=== PATIENT | male | born 2000 | race Caucasian/White ===

== ENCOUNTER 2022-01-19 09:00 | Emergency (ER) | payer OTHER ==
[~2022-01-19] VITALS: Ht 167.6 cm; Wt 81.6 kg
--- NOTE | 2022-01-19 09:20 | NUR ---
BIBA [id number] "Abdominal pain/nausea/vomiting started yesterday". On room air, breathing evenly and unlabored. Kept comfortable, will continue to monitor accordingly.
[2022-01-19] MEDS ORDERED: IV NS 0.9% 1,000 ML BAG IV ONE (09:30)
[2022-01-19] MEDS ORDERED: ONDANSETRON HCL/PF - ER 4 MG/2 ML VIAL IV ONE (09:30)
[2022-01-19] MEDS ORDERED: KETOROLAC TROMETHAMINE INJ 30 MG/ML VIAL IV ONE (09:30)
[2022-01-19] MEDS ORDERED: ONDANSETRON HCL/PF 4 MG/2 ML VIAL ONE (09:33)
[2022-01-19] MEDS ORDERED: KETOROLAC TROMETHAMINE 15 MG/ML VIAL ONE (09:33)
[2022-01-19 09:37] LABS: BASOPHILS # (AUTO) 0.2 K/uL (0.0-0.2); BASOPHILS % (AUTO) 0.8 % (0.0-2.0); EOSINOPHILS % (AUTO) 0.2 % (0.0-6.0); HEMATOCRIT 45 % (39-51); LYMPHOCYTES # (AUTO) 2.1 K/uL (0.8-4.8); MEAN CORPUSCULAR HGB CONC 34 g/dl (31.0-36.0); MEAN CORPUSCULAR VOLUME 87 fL (80-96); MONOCYTES # (AUTO) 0.9 K/uL (0.1-1.30); NEUTROPHILS # (AUTO) 15.7 K/uL (1.8-8.9); PLATELET COUNT (AUTO) 321 K/uL (150-450); RED BLOOD CELL COUNT(AUTO) 5.15 MIL/uL (4.5-6.0); WHITE BLOOD COUNT (AUTO) 18.9 K/uL (4.3-11.0)
--- NOTE | 2022-01-19 09:40 | NUR ---
wheeled patient via gurney accompanied by [employer] to ct.
[2022-01-19 09:59] LABS: ALANINE AMINOTRANSFERASE 36 U/L (12-78); ALBUMIN 4.7 g/dL (3.4-5.0); ALKALINE PHOSPHATASE 39 U/L (46-116); ASPARTATE AMINOTRANSFERASE 22 U/L (15-37); CALCIUM, SERUM 9.7 mg/dL (8.5-10.1); CARBON DIOXIDE 23 mmol/L (21-32); CHLORIDE 97 mmol/L (98-107); CREATININE 1.3 mg/dL (0.6-1.3); GLUCOSE 136 mg/dL (74-106); LIPASE 43 U/L (73-393); POTASSIUM 3.6 mmol/L (3.5-5.1); SODIUM SERUM 137 mmol/L (136-145); TOTAL PROTEIN, SERUM 8.3 g/dL (6.4-8.2); UREA NITROGEN, BLOOD 21 mg/dL (7-18)
[2022-01-19] MEDS ORDERED: MORPHINE SULFATE INJ 4 MG/ML DISP.SYRIN ONE ×2 (10:27→12:21)
[2022-01-19] MEDS ORDERED: IV NS 0.9% 1,000 ML IV ONE (10:30)
[2022-01-19] MEDS ORDERED: MORPHINE SULFATE INJ 2 MG/ML DISP.SYRIN IV ONE ×2 (10:30→12:30)
[2022-01-19 10:51] LABS: BILIRUBIN,DIRECT 0.1 mg/dL (0.0-0.2); BILIRUBIN,TOTAL 0.5 mg/dL (0.2-1.0)
[2022-01-19] MEDS ORDERED: IOHEXOL-350 100 ML VIAL IV ONE (11:19)
[2022-01-19] MEDS ORDERED: IV NS 0.9% 250 ML IV ONE (11:19)
[2022-01-19] MEDS ORDERED: CEFEPIME 1 GM in IV D5W 50 ML IV ONE (13:00)
[2022-01-19] MEDS ORDERED: VANCOMYCIN HCL 1 GM in IV D5W 260 ML IV ONE (13:00)
--- NOTE | 2022-01-19 14:21 | NUR ---
[facility] BED REQUESTED.
[2022-01-19 15:00] VITALS: BP 118/77
[2022-01-19] MEDS ORDERED: IV NS 0.9% 1,000 ML IV PRN (15:00)
[2022-01-19] MEDS ORDERED: ONDANSETRON HCL/PF 4 MG/2 ML VIAL IVP PRN (15:00)
[2022-01-19] MEDS ORDERED: MAG HYDROX/AL HYDROX/SIMETH 30 ML UDC PO PRN (15:00)
[2022-01-19] MEDS ORDERED: MORPHINE SULFATE INJ 2 MG/ML DISP.SYRIN IV PRN (15:00)
[2022-01-19] MEDS ORDERED: MAGNESIUM HYDROXIDE 30 ML UDC PO PRN (15:00)
[2022-01-19] MEDS ORDERED: Z GUARD REMEDY 4 OZ OINT TP PRN (15:00)
[2022-01-19] MEDS ORDERED: ZOLPIDEM TARTRATE 5 MG TABLET PO PRN (15:00)
[2022-01-19] MEDS ORDERED: ACETAMINOPHEN 325 MG TABLET PO PRN (15:00)
--- NOTE | 2022-01-19 15:59 | NUR ---
Patient does not wish to proceed with medical care recommended by Dr. Goins. Patient given information related to possible complications, up to and including , which could occur as a result of leaving the hospital at this time. Patient verbalizes understanding of risks involved due to leaving against medical advice. Patient has signed AMA form.
== END 2022-01-19 15:59 | disposition left against medical advice (07) ==
LOC: ER 09:05
DX: K52.9 Noninfective gastroenteritis and colitis, unspecified (principal); R10.13 Epigastric pain; Z20.822 Contact with and (suspected) exposure to COVID-19; Z53.29 Procedure and treatment not carried out because of patient's decision for other reasons; E87.2 Acidosis; K76.0 Fatty (change of) liver, not elsewhere classified; Z87.442 Personal history of urinary calculi
CPT/HCPCS: 36415; 74174; 74176; 80048; 80076; 83605 ×2; 83690; 85025; 87426; 96361; 96365; 96368; 96375; 96376; 99291; 99292; C9803; J0692; J1885; J2270 ×2; J2405 ×2; J7030 ×2; J7050; J7060; Q9967

== ENCOUNTER 2022-02-15 13:50 | Emergency (ER) | payer OTHER ==
[~2022-02-15] VITALS: Ht 170.2 cm; Wt 77.1 kg
--- NOTE | 2022-02-15 14:14 | NUR ---
BIBS C/O GENERALIZED PAIN AND VOMITTING THIS MORNING WAS HERE PREVIOUSLY AND DIAGNOSED WITH COLITIS, PAIN IS 10/10. AMBULATORY, PLACED ON BED, AAOX4, IN PAIN.
--- NOTE | 2022-02-15 14:15 | NUR ---
URINE COLLECTED AND SENT
[2022-02-15] MEDS ORDERED: ONDANSETRON HCL/PF 4 MG/2 ML VIAL IVP ONE (14:30)
[2022-02-15] MEDS ORDERED: IV NS 0.9% 1,000 ML BAG IV ONE (14:30)
[2022-02-15] MEDS ORDERED: ONDANSETRON HCL/PF 4 MG/2 ML VIAL ONE (14:38)
--- NOTE | 2022-02-15 14:40 | NUR ---
HYDRAULIC MINER BLASTING AT BED SIDE
[2022-02-15 14:52] LABS: BASOPHILS % (AUTO) 0.3 % (0.0-2.0); EOSINOPHILS % (AUTO) 0.5 % (0.0-6.0); HEMATOCRIT 47 % (39-51); HEMOGLOBIN 15.8 g/dL (13.5-17.5); LYMPHOCYTES # (AUTO) 1.8 K/uL (0.8-4.8); LYMPHOCYTES % (AUTO) 11.4 % (20.0-44.0); MEAN CORPUSCULAR HGB CONC 34 g/dl (31.0-36.0); MEAN CORPUSCULAR VOLUME 85 fL (80-96); MONOCYTES # (AUTO) 0.5 K/uL (0.1-1.30); MONOCYTES % (AUTO) 3.4 % (2.0-12.0); NEUTROPHILS # (AUTO) 13.5 K/uL (1.8-8.9); NEUTROPHILS % (AUTO) 84.4 % (43.0-81.0); PLATELET COUNT (AUTO) 317 K/uL (150-450); RED BLOOD CELL COUNT(AUTO) 5.51 MIL/uL (4.5-6.0)
[2022-02-15] MEDS ORDERED: DICYCLOMINE HCL INJ 20 MG/2 ML AMPUL IM ONE ×2 (14:57→15:00)
[2022-02-15] MEDS ORDERED: FAMOTIDINE/PF INJ 20 MG/2 ML VIAL IV ONE ×2 (14:58→15:00)
[2022-02-15] MEDS ORDERED: MAG HYDROX/AL HYDROX/SIMETH 30 ML UDC ONE (14:58)
[2022-02-15] MEDS ORDERED: LIDOCAINE VISCOUS 2% UD 15 ML UDC ONE (14:58)
[2022-02-15] MEDS ORDERED: MAG HYDROX/AL HYDROX/SIMETH 30 ML UDC PO ONE (15:00)
[2022-02-15] MEDS ORDERED: LIDOCAINE VISCOUS 2% UD 15 ML UDC MM ONE (15:00)
[2022-02-15 15:12] LABS: ALBUMIN 4.6 g/dL (3.4-5.0); BILIRUBIN,DIRECT 0.1 mg/dL (0.0-0.2); BILIRUBIN,TOTAL 0.4 mg/dL (0.2-1.0); CALCIUM, SERUM 9.5 mg/dL (8.5-10.1); CREATININE 1.3 mg/dL (0.6-1.3); POTASSIUM 4.1 mmol/L (3.5-5.1); TOTAL PROTEIN, SERUM 8.3 g/dL (6.4-8.2)
[2022-02-15 15:13] LABS: BILIRUBIN,URINE NEGATIVE (NEGATIVE); COLOR,URINE YELLOW (YELLOW); LEUKOCYTE ESTERASE ,URINE NEGATIVE (NEGATIVE); NITRITE, URINE NEGATIVE (NEGATIVE); PROTEIN,URINE 30 mg/dl (NEGATIVE); UGLUCOSE NEGATIVE (NEGATIVE); UROBILINOGEN,URINE 0.2 EU/dL (0.2)
--- NOTE | 2022-02-15 15:29 | NUR ---
PATIENT TAKEN TO CT VIA [facility]
[2022-02-15 15:41] LABS: BACTERIA,URINE None seen /HPF (None Seen); SQUAMOUS EPITHELIAL CELL,UR 0-2 /HPF (None Seen); WBC,URINE 0-2 /HPF (0-3)
[2022-02-15] MEDS ORDERED: ONDA4TAB5 PO (17:41)
[2022-02-15] MEDS ORDERED: AMOX-430 PO (17:41)
[2022-02-15] MEDS ORDERED: FAMO-131 PO (17:41)
[2022-02-15] MEDS ORDERED: DICY10CA37 PO (17:41)
[2022-02-15 17:51] VITALS: BP 122/74
== END 2022-02-15 17:51 | disposition home or self-care (01) ==
LOC: ER 13:58
DX: R10.84 Generalized abdominal pain (principal); K52.9 Noninfective gastroenteritis and colitis, unspecified; F12.90 Cannabis use, unspecified, uncomplicated; R11.2 Nausea with vomiting, unspecified; D72.829 Elevated white blood cell count, unspecified; Z87.442 Personal history of urinary calculi
CPT/HCPCS: 99284; 74176; 96374; 96361; 96375; 85025; 80048; 83690; 80076; 81001; 36415; 96372; J3490; J2405; J7030; J0500

== ENCOUNTER 2022-03-29 01:49 | Emergency (ER) | payer OTHER ==
[~2022-03-29] VITALS: Ht 170.2 cm; Wt 77.1 kg
[~2022-03-29 01:49] MED LIST: AMOX-430 PO; DICY10CA37 PO; FAMO-131 PO; ONDA4TAB5 PO
--- NOTE | 2022-03-29 01:59 | NUR ---
CALLED FOR TRIAGE. PT IS IN THE BATHROOM
--- NOTE | 2022-03-29 02:00 | NUR ---
Darby kang in [facility] - 03/29/22 at 0205 by DAVE CALLED TO TRIAGE, STILL IN THE RESTROOM.
--- NOTE | 2022-03-29 02:25 | NUR ---
BIBMOTHER. MID STERNAL CP BURNING / NON RADIAITING. MULTIPLE EPISODES OF VOMMITING. PATIENT ALERT AND ORIENTED X3. AMBULATORY WITH NON LABORED BREATHING IN BED 01 ON MONITOR AND POX AWAITING MD LEBLANC.
[2022-03-29] MEDS ORDERED: ONDANSETRON HCL/PF 4 MG/2 ML VIAL ONE ×2 (02:29→02:54)
[2022-03-29] MEDS ORDERED: IV NS 0.9% 500 ML BAG IV ONE (02:30)
[2022-03-29] MEDS ORDERED: LIDOCAINE VISCOUS 2% UD 15 ML UDC ONE (02:30)
[2022-03-29] MEDS ORDERED: MAG HYDROX/AL HYDROX/SIMETH 30 ML UDC PO ONE (02:30)
[2022-03-29] MEDS ORDERED: MAG HYDROX/AL HYDROX/SIMETH 30 ML UDC ONE (02:30)
[2022-03-29] MEDS ORDERED: ONDANSETRON HCL/PF 4 MG/2 ML VIAL IVP ONE (02:30)
[2022-03-29] MEDS ORDERED: LIDOCAINE VISCOUS 2% UD 15 ML UDC MM ONE (02:30)
--- NOTE | 2022-03-29 02:37 | NUR ---
BLOOD COLLECTED AND SENT TO LAB
[2022-03-29 02:55] LABS: BASOPHILS # (AUTO) 0.1 K/uL (0.0-0.2); BASOPHILS % (AUTO) 0.3 % (0.0-2.0); EOSINOPHILS % (AUTO) 0.8 % (0.0-6.0); HEMATOCRIT 49 % (39-51); HEMOGLOBIN 16.2 g/dL (13.5-17.5); LYMPHOCYTES # (AUTO) 3.4 K/uL (0.8-4.8); LYMPHOCYTES % (AUTO) 15.5 % (20.0-44.0); MEAN CORPUSCULAR HGB CONC 33 g/dl (31.0-36.0); MEAN CORPUSCULAR VOLUME 85 fL (80-96); MONOCYTES % (AUTO) 4.4 % (2.0-12.0); NEUTROPHILS # (AUTO) 17.4 K/uL (1.8-8.9); PLATELET COUNT (AUTO) 334 K/uL (150-450); RED BLOOD CELL COUNT(AUTO) 5.74 MIL/uL (4.5-6.0)
[2022-03-29 03:00] LABS: CALCIUM, SERUM 10.3 mg/dL (8.5-10.1); CARBON DIOXIDE 28 mmol/L (21-32); CHLORIDE 101 mmol/L (98-107); CREATININE 1.4 mg/dL (0.6-1.3); GLUCOSE 158 mg/dL (74-106); SODIUM SERUM 140 mmol/L (136-145); UREA NITROGEN, BLOOD 21 mg/dL (7-18)
[2022-03-29] MEDS ORDERED: ONDANSETRON HCL/PF 4 MG/2 ML VIAL IV ONE (03:00)
[2022-03-29 03:06] LABS: ALANINE AMINOTRANSFERASE 25 U/L (12-78); ALBUMIN 4.8 g/dL (3.4-5.0); ALKALINE PHOSPHATASE 43 U/L (46-116); ASPARTATE AMINOTRANSFERASE 12 U/L (15-37); BILIRUBIN,DIRECT 0.1 mg/dL (0.0-0.2); BILIRUBIN,TOTAL 0.5 mg/dL (0.2-1.0); TOTAL PROTEIN, SERUM 8.5 g/dL (6.4-8.2)
--- NOTE | 2022-03-29 03:13 | NUR ---
URINE COLLECTED AND SENT TO LAB
[2022-03-29] MEDS ORDERED: METOCLOPRAMIDE HCL 10 MG/2 ML VIAL ONE (03:33)
[2022-03-29] MEDS ORDERED: METOCLOPRAMIDE HCL 10 MG/2 ML VIAL IV ONE (04:00)
[2022-03-29 05:06] LABS: BILIRUBIN,URINE NEGATIVE (NEGATIVE); COLOR,URINE YELLOW (YELLOW); LEUKOCYTE ESTERASE ,URINE NEGATIVE (NEGATIVE); NITRITE, URINE NEGATIVE (NEGATIVE); PH,URINE 6.5 (5.0-8.0); PROTEIN,URINE TRACE mg/dl (NEGATIVE); UGLUCOSE NEGATIVE (NEGATIVE); UROBILINOGEN,URINE 0.2 EU/dL (0.2)
[2022-03-29 05:16] LABS: BACTERIA,URINE Rare /HPF (None Seen); RBC,URINE 0-2 /HPF (0-2); SQUAMOUS EPITHELIAL CELL,UR Few /HPF (None Seen); WBC,URINE 0-2 /HPF (0-3)
[2022-03-29] MEDS ORDERED: PANT40TA2 PO (05:17)
[2022-03-29] MEDS ORDERED: MORPHINE SULFATE INJ 4 MG/ML DISP.SYRIN ONE (05:24)
[2022-03-29] MEDS ORDERED: MORPHINE SULFATE INJ 2 MG/ML DISP.SYRIN IV ONE (05:30)
[2022-03-29 05:35] VITALS: BP 140/90
--- NOTE | 2022-03-29 05:35 | NUR ---
Patient discharged to home in stable condition. Written and verbal after care instructions given. Patient verbalizes understanding of instruction.
== END 2022-03-29 05:35 | disposition home or self-care (01) ==
LOC: ER 01:54
DX: K29.70 Gastritis, unspecified, without bleeding (principal); F12.90 Cannabis use, unspecified, uncomplicated; Z87.442 Personal history of urinary calculi; Z79.899 Other long term (current) drug therapy
CPT/HCPCS: 99285; 96374; 96361; 96375; 93005; 71045; 85025; 80048; 80076; 81001; 36415; 84484 ×2; 80320; 80307; J2270; J2765; J2405 ×2; J7030; J7040; G0480

== ENCOUNTER 2022-06-05 14:38 | Emergency (ER) | payer OTHER ==
[~2022-06-05] VITALS: Ht 170.2 cm; Wt 90.7 kg
[~2022-06-05 14:38] MED LIST changes: +PANT40TA2 PO
--- NOTE | 2022-06-05 15:00 | NUR ---
BIBS C/O EPIGASTRIC AREA PAIN W/ NAUSEA AND VOMITING, "FEELING FAINT" SINCE MORNING. AMBULATORY, PLACED ON BED, IN PAIN 04/21 PS.
[2022-06-05] MEDS ORDERED: IV NS 0.9% 1,000 ML IV ONE (15:30)
[2022-06-05] MEDS ORDERED: HALOPERIDOL LACTATE INJ 5 MG/ML VIAL IV ONE (15:30)
[2022-06-05] MEDS ORDERED: diphenhydrAMINE HCL 50 MG/ML VIAL IV ONE (15:30)
[2022-06-05] MEDS ORDERED: diphenhydrAMINE HCL 50 MG/ML VIAL ONE (15:32)
[2022-06-05] MEDS ORDERED: HALOPERIDOL LACTATE INJ 5 MG/ML VIAL ONE (15:32)
--- NOTE | 2022-06-05 15:40 | NUR ---
BLOOD DRAWN AND SENT TO LAB
[2022-06-05 15:48] LABS: BASOPHILS # (AUTO) 0.1 K/uL (0.0-0.2); BASOPHILS % (AUTO) 0.3 % (0.0-2.0); EOSINOPHILS % (AUTO) 0.2 % (0.0-6.0); HEMATOCRIT 48 % (39-51); HEMOGLOBIN 16.1 g/dL (13.5-17.5); LYMPHOCYTES # (AUTO) 1.3 K/uL (0.8-4.8); LYMPHOCYTES % (AUTO) 7.8 % (20.0-44.0); MEAN CORPUSCULAR HGB CONC 34 g/dl (31.0-36.0); MEAN CORPUSCULAR VOLUME 84 fL (80-96); MONOCYTES # (AUTO) 0.5 K/uL (0.1-1.30); MONOCYTES % (AUTO) 2.8 % (2.0-12.0); NEUTROPHILS # (AUTO) 14.4 K/uL (1.8-8.9); NEUTROPHILS % (AUTO) 88.9 % (43.0-81.0); PLATELET COUNT (AUTO) 358 K/uL (150-450); RED BLOOD CELL COUNT(AUTO) 5.68 MIL/uL (4.5-6.0); WHITE BLOOD COUNT (AUTO) 16.1 K/uL (4.3-11.0)
[2022-06-05 16:04] LABS: ALBUMIN 4.8 g/dL (3.4-5.0); BILIRUBIN,TOTAL 0.6 mg/dL (0.2-1.0); CALCIUM, SERUM 10.4 mg/dL (8.5-10.1); CREATININE 1.3 mg/dL (0.6-1.3); POTASSIUM 4.1 mmol/L (3.5-5.1); TOTAL PROTEIN, SERUM 8.6 g/dL (6.4-8.2)
--- NOTE | 2022-06-05 16:51 | NUR ---
IV removed. Catheter intact and site benign. Pressure and 4x4 applied to site. No bleeding noted.Patient discharged to home in stable condition. Written and verbal after care instructions given. Patient verbalizes understanding of instruction.
[2022-06-05 16:52] VITALS: BP 125/85
== END 2022-06-05 16:50 | disposition home or self-care (01) ==
LOC: ER 14:58
DX: R10.84 Generalized abdominal pain (principal); R11.2 Nausea with vomiting, unspecified; Z87.442 Personal history of urinary calculi; Z79.899 Other long term (current) drug therapy
CPT/HCPCS: 99284; 96374; 96361; 96375; 85025; 83690; 36415; 80053; J1200; J1630; J7030

== ENCOUNTER 2022-06-23 16:11 | Emergency (ER) | payer OTHER ==
[~2022-06-23] VITALS: Ht 170.2 cm; Wt 77.1 kg
--- NOTE | 2022-06-23 18:29 | NUR ---
to ER 12, awaiting for ER MD to see
[2022-06-23] MEDS ORDERED: ONDANSETRON HCL/PF 4 MG/2 ML VIAL IVP ONE (18:30)
[2022-06-23] MEDS ORDERED: IV NS 0.9% 1,000 ML BAG IV ONE (18:30)
[2022-06-23] MEDS ORDERED: MORPHINE SULFATE INJ 2 MG/ML DISP.SYRIN IV ONE (18:30)
[2022-06-23] MEDS ORDERED: MORPHINE SULFATE INJ 4 MG/ML DISP.SYRIN ONE (18:36)
[2022-06-23] MEDS ORDERED: ONDANSETRON HCL/PF 4 MG/2 ML VIAL ONE (18:36)
[2022-06-23 19:31] LABS: POTASSIUM 3.6 mmol/L (3.5-5.1)
[2022-06-23 19:45] LABS: ALBUMIN 4.6 g/dL (3.4-5.0); BILIRUBIN,DIRECT 0.2 mg/dL (0.0-0.2); BILIRUBIN,TOTAL 0.8 mg/dL (0.2-1.0); TOTAL PROTEIN, SERUM 8.3 g/dL (6.4-8.2)
[2022-06-23 20:00] VITALS: BP 137/75
[2022-06-23] MEDS ORDERED: KETOROLAC TROMETHAMINE INJ 30 MG/ML VIAL IV ONE (20:00)
[2022-06-23 20:07] LABS: BASOPHILS % (AUTO) 0.2 % (0.0-2.0); EOSINOPHILS % (AUTO) 0.3 % (0.0-6.0); HEMATOCRIT 45 % (39-51); HEMOGLOBIN 15.3 g/dL (13.5-17.5); LYMPHOCYTES # (AUTO) 1.4 K/uL (0.8-4.8); LYMPHOCYTES % (AUTO) 9.9 % (20.0-44.0); MEAN CORPUSCULAR HGB CONC 34 g/dl (31.0-36.0); MEAN CORPUSCULAR VOLUME 85 fL (80-96); MONOCYTES # (AUTO) 0.7 K/uL (0.1-1.30); NEUTROPHILS # (AUTO) 12.3 K/uL (1.8-8.9); NEUTROPHILS % (AUTO) 84.6 % (43.0-81.0); PLATELET COUNT (AUTO) 372 K/uL (150-450); RED BLOOD CELL COUNT(AUTO) 5.25 MIL/uL (4.5-6.0); WHITE BLOOD COUNT (AUTO) 14.6 K/uL (4.3-11.0)
[2022-06-23] MEDS ORDERED: KETOROLAC TROMETHAMINE INJ 30 MG/ML VIAL ONE (20:10)
--- NOTE | 2022-06-23 20:10 | NUR ---
Patient discharged to home in stable condition. Written and verbal after care instructions given. Patient verbalizes understanding of instruction.
== END 2022-06-23 22:13 | disposition home or self-care (01) ==
LOC: ER 16:14
DX: R10.84 Generalized abdominal pain (principal); M04.1 Periodic fever syndromes; R11.0 Nausea; Z87.442 Personal history of urinary calculi; Z79.899 Other long term (current) drug therapy
CPT/HCPCS: 99284; 96374; 96375; 96361; 85025; 80048; 83690; 80076; 36415; J2270; J1885; J2405; J7030

== ENCOUNTER → 2022-06-23 | Emergency (ER) | payer OTHER ==
--- NOTE | 2022-06-23 13:00 | NUR ---
CALLED IN ED WAITING ROOM. NO RESPONSE.
--- NOTE | 2022-06-23 13:47 | NUR ---
CALLED TO TRIAGE,NO ANSWER
== END ==
LOC: ER 12:37
DX: Z53.21 Procedure and treatment not carried out due to patient leaving prior to being seen by health care provider (principal)

== ENCOUNTER 2023-09-15 17:30 | Emergency (ER) | payer OTHER ==
[~2023-09-15] VITALS: Ht 170.2 cm; Wt 77.1 kg
[2023-09-15] MEDS ORDERED: ACETAMINOPHEN ES 500 MG TABLET ONE (20:06)
[2023-09-15] MEDS: ACETAMINOPHEN ES 500 MG TABLET PO ONE (20:09)
[2023-09-15] MEDS ORDERED: METOCLOPRAMIDE HCL 10 MG TABLET ONE (21:05)
[2023-09-15] MEDS ORDERED: diphenhydrAMINE HCL 25 MG CAPSULE ONE (21:05)
[2023-09-15] MEDS: diphenhydrAMINE HCL 25 MG CAPSULE PO ONE (21:16)
[2023-09-15] MEDS: METOCLOPRAMIDE HCL 10 MG TABLET PO ONE (21:16)
[2023-09-15] MEDS ORDERED: KETOROLAC TROMETHAMINE INJ 30 MG/ML VIAL ONE (21:32)
[2023-09-15] MEDS: KETOROLAC TROMETHAMINE INJ 60 MG/2 ML VIAL IM ONE (21:40)
[2023-09-15] MEDS ORDERED: ACET325C7 PO (22:11)
[2023-09-15] MEDS ORDERED: IBUP-1955 PO (22:11)
[2023-09-15] MEDS ORDERED: METH-647 PO (22:11)
[2023-09-15] MEDS ORDERED: DIPH-530 PO (22:11)
[2023-09-15 23:48] VITALS: BP 121/76; TEMP 98.1; O2SAT 98
== END 2023-09-15 23:48 | disposition home or self-care (01) ==
LOC: ER 17:35
DX: S00.03XA Contusion of scalp, initial encounter (principal); M54.6 Pain in thoracic spine; M25.512 Pain in left shoulder; W05.0XXA Fall from non-moving wheelchair, initial encounter; Y93.89 Activity, other specified; Y92.89 Other specified places as the place of occurrence of the external cause; Y99.8 Other external cause status
CPT/HCPCS: 99285; 72125; 96372; 73030; 71250; 70450; Q0163; J8597; J1885